=== PATIENT | male | born 1945 | race Caucasian/White ===

== ENCOUNTER 2017-09-16 07:20 | Emergency (ER) | payer MEDICARE, OTHER ==
[~2017-09-16] VITALS: Ht 175.3 cm; Wt 109.0 kg
[~2017-09-16 07:20] MED LIST: ALBUAER3 INH; ENAL10TA PO; FISH1000 PO; GLIP10TA6 PO; GLUCTES12; METF-382 PO; METO25TA3 PO; MULT-6 PO; ONGL5TAB PO; PRAV20TA PO; RANI150T PO; SPIRCAP INH; WARF-21 PO
[2017-09-16 07:22] VITALS: BP 180/80; PULSE 95; RESP 18; TEMP 97.6; O2SAT 95
[2017-09-16 07:28] VITALS: BP 146/82
[2017-09-16] MEDS ORDERED: diphenhydrAMINE HCL 50 MG/ML VIAL IV PUSH ONE (08:15)
[2017-09-16] MEDS ORDERED: SODIUM CHLORIDE 0.9% FLUSH 10 ML FLUSH IVF PRN (08:15)
[2017-09-16] MEDS ORDERED: methylPREDNISolone SOD SUCC 125 MG/2 ML VIAL IV PUSH ONE (08:15)
--- NOTE | 2017-09-16 08:16 | PD ---
HPI Chief Complaint: Skin Problem Time Seen by Provider: 07:42 Travel History International Travel<30 days: No Contact w/Intl Traveler<30days: No Traveled to known affect area: No History of Present Illness HPI 72-year-old male, with history of COPD, diabetes mellitus, PAD, hypertension, presents to the emergency department with complaint of a dry itchy rash all over that has worsened over the past week, but has been there for the past month. Denies fever, vomiting. Reports an increase in shortness of breath over the past 3 weeks. Reports wheezing. Denies chest pain. Reports testicular swelling over the past few days. Reports testicular pain. Denies dysuria. Denies recent surgeries. Has seen his primary care provider and has been put on steroids 2 times for his rash with no relief. He has an appointment with an teacher of the emotionally disturbed tomorrow, but says he cannot take the itching anymore. He has also tried topical hydrocortisone cream. Does not use an inhaler for his COPD, and has not tried any treatments to alleviate symptoms. Shortness of breath is worse with walking. Primary care provider is the [facility]. No known allergies. History of COPD, diabetes mellitus type 2, PAD, hypertension. Takes Coumadin, but does not know why. Says he thinks it is to prevent blood clots, and denies history of blood clots. Has no other medical complaints. No other modifying factors or associated signs and symptoms. PFSH Past Medical History Diminished Hearing: No Past Surgical History Other Surgery: Yes (HERNIA SX, RIGHT EYE GONE) Social History Alcohol Use: No Tobacco Use: No Substance Use: No Allergies-Medications (Allergen,Severity, Reaction): Coded Allergies: doxycycline (Unverified Allergy, Severe, rash, 09/16/17) Rash - pt. dosn't know clindamycin (Unverified Allergy, Intermediate, rash, 09/16/17) Pt. dosn't know Reported Meds & Prescriptions Reported Meds & Active Scripts Active Diphenhydramine (Diphenhydramine HCl) 25 Mg Cap 25 Mg PO Q6H PRN 5 Days Ventolin Hfa 18 GM Inh (Albuterol Sulfate) 90 Mcg/Act Aer 2 Puff INH Q4H PRN Deltasone (Prednisone) 20 Mg Tab 20 Mg PO BID 5 Days Warfarin 7.5 Mg Tab 7.5 Mg PO DAILY Metformin ER (Metformin HCl) 1,000 Mg Michael 1,000 Mg PO BID With evening meal Metoprolol Tartrate 25 Mg Tab 25 Mg PO BID Reported Hydroxyzine HCl 50 Mg Tab 50 Mg PO Q6HR Tradjenta (Linagliptin) 5 Mg Tab 5 Mg PO DAILY Fenofibrate 160 Mg Tab 160 Mg PO DAILY Atorvastatin (Atorvastatin Calcium) 80 Mg Tab 80 Mg PO HS Lantus Inj (Insulin Glargine) 1,000 Unit/10 Ml Vial 20 Units SQ HS Fish Oil ([place]-3 Fatty Acids) 1,000 Mg Cap 1,000 Mg PO BID Onglyza (Saxagliptin) 5 Mg Tab 5 Mg PO DAILY Ranitidine (Ranitidine HCl) 150 Mg Tab 150 Mg PO DAILY PRN Glucocom Test Strips (Blood Glucose Test Strips) 1 Jojo Jojo 1 Box .ROUTE DIRECTED Glipizide 10 Mg Tab 20 Mg PO BIDAC Take 30 minutes before a meal Enalapril (Enalapril Maleate) 10 Mg Tab 10 Mg PO TID Review of Systems Except as stated in HPI: all other systems reviewed are Neg Physical Exam Narrative GENERAL: Well-nourished, well-developed elderly, male patient; afebrile, nontoxic-appearing SKIN: Warm and dry. HEAD: Atraumatic. Normocephalic. EYES: Pupils equal and round. No scleral icterus. No injection or drainage. ENT: Mucosa pink and moist. No erythema or exudates. No uvular edema. No uvular , palatal, or tonsillar deviation. Airway patent. Nares without nasal blood, purulent drainage or septal hematoma. EARS: Bilateral pinnae and external canals appear within normal limits. Bilateral tympanic membranes without erythema, dullness or perforation. NECK: Trachea midline. No lymphadenopathy. CARDIOVASCULAR: Regular rate and rhythm. No murmur appreciated. RESPIRATORY: No accessory muscle use. Lungs with clear throughout to auscultation with decreased lung sounds in bilateral bases. Breath sounds equal bilaterally. Mildly tachypneic with some work of breathing. Audible wheezing noted. GASTROINTESTINAL: Abdomen soft, non-tender, nondistended. Hepatic and splenic margins not palpable. Bowel sounds are active 4 quadrants. MUSCULOSKELETAL: No obvious deformities. No clubbing. No cyanosis. No edema. NEUROLOGICAL: Awake and alert. Oriented 3. No obvious cranial nerve deficits. Motor grossly within normal limits. Normal speech. Moves all extremities. 5/5 strength to all extremities. PSYCHIATRIC: Appropriate mood and affect; insight and judgment normal. Data Data Last Documented VS Vital Signs Date Time Temp Pulse Resp B/P (MAP) Pulse Ox O2 Delivery O2 Flow Rate FiO2 09/16/17 11:30 (113) 09/16/17 08:37 99 Room Air 09/16/17 07:22 97.6 95 18 Orders Orders Electrocardiogram (09/16/17 08:07) Basic Metabolic Panel (Bmp) (09/16/17 08:07) B-Type Natriuretic Peptide (09/16/17 08:07) Ckmb (Isoenzyme) Profile (09/16/17 08:07) Complete Blood Count With Diff (09/16/17 08:07) Magnesium (Mg) (09/16/17 08:07) Prothrombin Time / Inr (Pt) (09/16/17 08:07) Act Partial Throm Time (Ptt) (09/16/17 08:07) Troponin I (09/16/17 08:07) Ecg Monitoring (09/16/17 08:07) Iv Access Insert/Monitor (09/16/17 08:07) Oximetry (09/16/17 08:07) Sodium Chloride 0.9% Flush (Ns Flush) (09/16/17 08:15) Chest, Pa & Lat (09/16/17 08:07) Diphenhydramine Inj (Benadryl Inj) (09/16/17 08:15) Us Testicles W Doppler (09/16/17 ) Methylprednisolone So Succ Inj (Solumedr (09/16/17 08:15) Albuterol-Ipratropium Neb (Duoneb Neb) (09/16/17 09:00) CKMB (09/16/17 08:30) CKMB% (09/16/17 08:30) Ed Discharge Order (09/16/17 11:22) Magnesium Oxide (Mag-Ox) (09/16/17 11:30) Labs Laboratory Tests Test 09/16/17 08:30 White Blood Count 9.4 TH/MM3 Red Blood Count 4.33 MIL/MM3 Hemoglobin 13.6 GM/DL Hematocrit 39.3 % Mean Corpuscular Volume 90.6 FL Mean Corpuscular Hemoglobin 31.3 PG Mean Corpuscular Hemoglobin Concent 34.6 % Red Cell Distribution Width 14.2 % Platelet Count 268 TH/MM3 Mean Platelet Volume 8.2 FL Neutrophils (%) (Auto) 69.4 % Lymphocytes (%) (Auto) 11.3 % Monocytes (%) (Auto) 10.8 % Eosinophils (%) (Auto) 7.5 % Basophils (%) (Auto) 1.0 % Neutrophils # (Auto) 6.5 TH/MM3 Lymphocytes # (Auto) 1.1 TH/MM3 Monocytes # (Auto) 1.0 TH/MM3 Eosinophils # (Auto) 0.7 TH/MM3 Basophils # (Auto) 0.1 TH/MM3 CBC Comment DIFF FINAL Differential Comment Prothrombin Time 13.4 SEC Prothromb Time International Ratio 1.3 RATIO Activated Partial Thromboplast Time 26.4 SEC Blood Urea Nitrogen 13 MG/DL Creatinine 1.03 MG/DL Random Glucose 159 MG/DL Calcium Level 9.0 MG/DL Magnesium Level 1.2 MG/DL Sodium Level 140 MEQ/L Potassium Level 4.6 MEQ/L Chloride Level 103 MEQ/L Carbon Dioxide Level 30.0 MEQ/L Anion Gap 7 MEQ/L Estimat Glomerular Filtration Rate 71 ML/MIN Total Creatine Kinase 104 U/L Creatine Kinase MB 4.0 NG/ML Troponin I LESS THAN 0.02 NG/ML B-Type Natriuretic Peptide 49 PG/ML MDM Medical Decision Making Medical Screen Exam Complete: Yes Emergency Medical Condition: Yes Medical Record Reviewed: Yes Differential Diagnosis COPD exacerbation, nonspecific rash, CHF, Narrative Course This is a 72-year-old male with history of COPD, diabetes mellitus, PAD, hypertension, and on Coumadin. He presents with a generalized, erythematous, itchy rash and increased shortness of breath. He is swollen all over and has multiple areas of excoriation to bilateral arms, buttocks, bilateral lower extremities. Patient has some work of breathing during physical exam and with talking. Lungs are clear with decreased lung sounds in bilateral bases. He is mildly tachypneic. Oxygen saturation is 95% on room air. His testicles are severely swollen and he reports they are painful. He denies chest pain. I talked to Dr. Mccracken, my attending physician, and she agrees with my plan of care. Patient will be moved to a medical bed for further treatment and evaluation. Dr. Mccracken will assume care at this time. See her note for final patient disposition. CBC, CMP, CK-MB, troponin, BNP, coags, chest x-ray, EKG, Solu- Medrol, Benadryl, testicular ultrasound ordered. The patient is refusing an albuterol breathing treatment secondary to it making him cold. Scripts Diphenhydramine (Diphenhydramine) 25 Mg Cap 25 MG PO Q6H Y for ITCHING for 5 Days, #20 CAP 0 Refills Prov: Jennifer Mccracken DO 09/16/17 Albuterol 18 GM Inh (Ventolin Hfa 18 GM Inh) 90 Mcg/Act Aer 2 PUFF INH Q4H Y for SHORTNESS OF BREATH, #1 INHALER 0 Refills Prov: Jennifer Mccracken DO 09/16/17 Prednisone (Deltasone) 20 Mg Tab 20 MG PO BID for 5 Days, #10 TAB 0 Refills Prov: Jennifer Mccracken DO 09/16/17 Beena Norwood Sep 16, 2017 08:16
--- NOTE | 2017-09-16 08:31 | PD ---
Physical Exam Narrative I, Dr. Mccracken, have reviewed the advance practice practitioner's documentation and am in agreement, met with the patient face to face, made the diagnosis, and the medical decision making was done by me. *My assessment and Findings: Anasarca vs. psoriasis vs. eczema vs. COPD exacerbation vs. CHF Pt was [facility] at [facility] and then transfer to medical bed. 72yo M with PMH of COPD, DM, HTN here with multiple complaints. Pt has a diffuse, itchy rash for 1 month and is here for that. Pt is also sob for a while and has wheezing on exam. Initially did not want any nebulizer treatment but after discussing, agreed to it. Pt also have diffuse edema in bilateral legs and scrotum. It was not tender on scrotum exam and feels like fluid. Labs reviewed , no leukocytosis. H/H normal. BNP normal. Troponin negative. Mild hypomagnesemia, replaced. CXR showed no acute disease. US scrotum showed 3 simple cyst right testicle. Mild right hydrocele and minimal left hydrocele. 0.5cm left epididymal head cyst. Both testicles demonstrate intratesticular blood flow. Pt given diphenhydramine for itching. Pt had expiratory wheezing so given methylprednisolone and duonebs. Pt reevaluated after medications and said he feels much better. Pt is no longer sob and no longer itching. O2 sat 99 % on RA. Pt never had any chest pain and denies testicular pain to me. He has a primary care physician and has an appointment with foundry worker apprentice tomorrow. Impression is more psoriasis vs. eczema and pt has no tongue or throat swelling. Will give a few days of prednisone for COPD and rash since it is so diffuse. Will give ventolin. Data Data Last Documented VS Vital Signs Date Time Temp Pulse Resp B/P (MAP) Pulse Ox O2 Delivery O2 Flow Rate FiO2 09/16/17 08:37 (113) 99 Room Air 09/16/17 07:22 97.6 95 18 Orders Orders Electrocardiogram (09/16/17 08:07) Basic Metabolic Panel (Bmp) (09/16/17 08:07) B-Type Natriuretic Peptide (09/16/17 08:07) Ckmb (Isoenzyme) Profile (09/16/17 08:07) Complete Blood Count With Diff (09/16/17 08:07) Magnesium (Mg) (09/16/17 08:07) Prothrombin Time / Inr (Pt) (09/16/17 08:07) Act Partial Throm Time (Ptt) (09/16/17 08:07) Troponin I (09/16/17 08:07) Ecg Monitoring (09/16/17 08:07) Iv Access Insert/Monitor (09/16/17 08:07) Oximetry (09/16/17 08:07) Sodium Chloride 0.9% Flush (Ns Flush) (09/16/17 08:15) Chest, Pa & Lat (09/16/17 08:07) Diphenhydramine Inj (Benadryl Inj) (09/16/17 08:15) Us Testicles W Doppler (09/16/17 ) Methylprednisolone So Succ Inj (Solumedr (09/16/17 08:15) Albuterol-Ipratropium Neb (Duoneb Neb) (09/16/17 09:00) CKMB (09/16/17 08:30) CKMB% (09/16/17 08:30) Ed Discharge Order (09/16/17 11:22) Labs Laboratory Tests Test 09/16/17 08:30 White Blood Count 9.4 TH/MM3 Red Blood Count 4.33 MIL/MM3 Hemoglobin 13.6 GM/DL Hematocrit 39.3 % Mean Corpuscular Volume 90.6 FL Mean Corpuscular Hemoglobin 31.3 PG Mean Corpuscular Hemoglobin Concent 34.6 % Red Cell Distribution Width 14.2 % Platelet Count 268 TH/MM3 Mean Platelet Volume 8.2 FL Neutrophils (%) (Auto) 69.4 % Lymphocytes (%) (Auto) 11.3 % Monocytes (%) (Auto) 10.8 % Eosinophils (%) (Auto) 7.5 % Basophils (%) (Auto) 1.0 % Neutrophils # (Auto) 6.5 TH/MM3 Lymphocytes # (Auto) 1.1 TH/MM3 Monocytes # (Auto) 1.0 TH/MM3 Eosinophils # (Auto) 0.7 TH/MM3 Basophils # (Auto) 0.1 TH/MM3 CBC Comment DIFF FINAL Differential Comment Prothrombin Time 13.4 SEC Prothromb Time International Ratio 1.3 RATIO Activated Partial Thromboplast Time 26.4 SEC Blood Urea Nitrogen 13 MG/DL Creatinine 1.03 MG/DL Random Glucose 159 MG/DL Calcium Level 9.0 MG/DL Magnesium Level 1.2 MG/DL Sodium Level 140 MEQ/L Potassium Level 4.6 MEQ/L Chloride Level 103 MEQ/L Carbon Dioxide Level 30.0 MEQ/L Anion Gap 7 MEQ/L Estimat Glomerular Filtration Rate 71 ML/MIN Total Creatine Kinase 104 U/L Creatine Kinase MB 4.0 NG/ML Troponin I LESS THAN 0.02 NG/ML B-Type Natriuretic Peptide 49 PG/ML [facility] Supervised Visit with SOLOMON: Yes Interpretation(s) EKG: NSR 76bpm. LAD. No ST segment elevation or depression. Diagnosis Primary Impression: Atopic dermatitis Qualified Codes: L20.9 - Atopic dermatitis, unspecified Additional Impression: COPD exacerbation Referrals: Will Bansal MD as needed Scrotal edema Patient Instructions: General Instructions Departure Forms: Tests/Procedures Additional Instruction: Please follow up with your primary care physician, human resources project coordinator as needed, foundry worker apprentice and urologist as needed. Return to the ED if symptoms worsen. Med/Other Pt SpecificInfo: Prescription(s) given Scripts Diphenhydramine (Diphenhydramine) 25 Mg Cap 25 MG PO Q6H Y for ITCHING for 5 Days, #20 CAP 0 Refills Prov: Jennifer Mccracken DO 09/16/17 Albuterol 18 GM Inh (Ventolin Hfa 18 GM Inh) 90 Mcg/Act Aer 2 PUFF INH Q4H Y for SHORTNESS OF BREATH, #1 INHALER 0 Refills Prov: Jennifer Mccracken DO 09/16/17 Prednisone (Deltasone) 20 Mg Tab 20 MG PO BID for 5 Days, #10 TAB 0 Refills Prov: Jennifer Mccracken DO 09/16/17 Disposition: 01 DISCHARGE HOME Condition: Stable Jennifer Mccracken DO Sep 16, 2017 08:31
[2017-09-16 08:37] VITALS: O2SAT 99
--- NOTE | 2017-09-16 08:43 | RADRPT ---
EXAM DATE/TIME: 09/16/2017 08:15 [facility] COMPARISON: No previous studies available for comparison. INDICATIONS : Short of Breath MEDICAL HISTORY : Chronic obstructive pulmonary disease. SURGICAL HISTORY : None. ENCOUNTER: Initial ACUITY: 1 day PAIN SCORE: 0/10 LOCATION: chest FINDINGS: PA and lateral views of the chest demonstrate the lungs to be symmetrically aerated without evidence of mass, infiltrate or effusion. The cardiomediastinal contours are unremarkable. Spurs are seen in the thoracic spine. There appears to be aortic stent graft in the abdominal aorta. CONCLUSION: No acute disease. Tod Noel MD on September 16, 2017 at 8:41 Board Certified Radiologist. This report was verified electronically.
[2017-09-16 08:48] LABS: WHITE BLOOD COUNT 9.4 TH/MM3 (4.0-11.0)
[2017-09-16 08:49] LABS: AUTOMATED NEUTROPHIL # 6.5 TH/MM3 (1.8-7.7); BASOPHIL # 0.1 TH/MM3 (0-0.2); EOSINOPHIL # 0.7 TH/MM3 (0-0.4); EOSINOPHIL % 7.5 % (0.0-4.0); HEMATOCRIT 39.3 % (39.0-51.0); HEMOGLOBIN 13.6 GM/DL (13.0-17.0); LYMPH % 11.3 % (9.0-44.0); LYMPHOCYTE # 1.1 TH/MM3 (1.0-4.8); MEAN CELL VOLUME 90.6 FL (80.0-100.0); MEAN CORPUSCULAR HEMOGLOBIN 31.3 PG (27.0-34.0); MEAN CORPUSCULAR HGB CONC 34.6 % (32.0-36.0); MEAN PLATELET VOLUME 8.2 FL (7.0-11.0); MONO % 10.8 % (0.0-8.0); NEUT % 69.4 % (16.0-70.0); PLATELET COUNT 268 TH/MM3 (150-450); RED BLOOD COUNT 4.33 MIL/MM3 (4.50-5.90); RED CELL DISTRIBUTION WIDTH 14.2 % (11.6-17.2)
[2017-09-16 09:07] LABS: INTERNATIONAL NORMALIZED RATIO 1.3 RATIO; PROTHROMBIN TIME - PATIENT 13.4 SEC (9.8-11.6)
[2017-09-16 09:21] LABS: BLOOD UREA NITROGEN 13 MG/DL (7-18); CHLORIDE 103 MEQ/L (98-107); CREATININE 1.03 MG/DL (0.60-1.30); GLOMERULAR FILTRATION RATE 71 ML/MIN (>89); GLUCOSE,RANDOM 159 MG/DL (74-106); MAGNESIUM 1.2 MG/DL (1.5-2.5); SODIUM (NA) 140 MEQ/L (136-145)
[2017-09-16 09:25] LABS: TROPONIN I LESS THAN 0.02 NG/ML (0.02-0.05)
[2017-09-16] MEDS: RESP: ALBUTEROL 2.5 MG/IPRATROPIUM 0.5 MG NEB (SCH) INH (09:34)
--- NOTE | 2017-09-16 10:04 | RADRPT ---
EXAM DATE/TIME: 09/16/2017 08:33 [facility] COMPARISON: No previous studies available for comparison. INDICATIONS : Scrotal pain. MEDICAL HISTORY : Scrotal pain. SURGICAL HISTORY : Hernia repair. Right eye removal. ENCOUNTER: Initial ACUITY: 1 week PAIN SCORE: 0/10 LOCATION: Bilateral scrotum. MEASUREMENTS: RIGHT TESTICLE: 4.1 x 2.6 x 2.9cm LEFT TESTICLE: 3.8 x 2.3 x 2.1cm FINDINGS: RIGHT TESTICLE: Homogeneous echotexture the right testicle. There are 3 simple cysts seen at the periphery of the lef t testicle measuring 0.9 cm, 1.3 cm, and 1.0 cm in diameter. Blood flow is symmetric and within norm al limits. There is a mild hydrocele. No varicocele is seen. Epididymis appears somewhat prominent but no mass is seen. LEFT TESTICLE: Homogeneous echotexture without intra or extratesticular mass. Blood flow is symmetric and within no rmal limits. No significant varicocele is seen. There is a 0.5 cm cyst of the left epididymis. Ther e is a minimal hydrocele. SCROTUM: The scrotum appears diffusely thickened and edematous. CONCLUSION: 1. 3 simple cyst seen in the right testicle. These have a benign appearance. 2. Thickening and edema seen throughout the scrotum. 3. Mild right hydrocele and minimal left hydrocele. 4. 0.5 cm left epididymal head cyst. 5. Both testicles demonstrate intratesticular blood flow. Tod Noel MD on September 16, 2017 at 9:58 Board Certified Radiologist. This report was verified electronically.
[2017-09-16] MEDS ORDERED: LANTUS2P SQ (10:20)
[2017-09-16] MEDS ORDERED: HYDR50TA94 PO (10:23)
[2017-09-16] MEDS ORDERED: TRAD5TAB PO (10:23)
[2017-09-16] MEDS ORDERED: ATOR80TA45 PO (10:23)
[2017-09-16] MEDS ORDERED: FENO160T PO (10:23)
[2017-09-16] MEDS ORDERED: PRED-503 PO (11:22)
[2017-09-16] MEDS ORDERED: DIPH25CA PO (11:22)
[2017-09-16] MEDS ORDERED: VENTAER INH (11:22)
--- NOTE | 2017-09-16 11:27 | EKG ---
Date Performed: 09/16/2017 Time Performed: 09:38:06 PTAGE: 72 years EKG: Sinus rhythm INCOMPLETE RIGHT BUNDLE BRANCH BLOCK LEFT ANTERIOR FASCICULAR BLOCK ABNORMAL ECG PREVIOUS TRACING : 03/05/2000 23.44 No significant change from previous tracing noted. DOCTOR: Catarino Zayas Interpretating Date/Time 09/16/2017 11:26:15
[2017-09-16] MEDS ORDERED: MAGNESIUM OXIDE 400 MG TAB PO ONE (11:30)
== END 2017-09-16 11:37 | disposition home or self-care (01) ==
LOC: NEPE 07:20
DX: L20.9 Atopic dermatitis, unspecified (principal); J44.1 Chronic obstructive pulmonary disease with (acute) exacerbation; N50.89 Other specified disorders of the male genital organs; R94.31 Abnormal electrocardiogram [ECG] [EKG]; R06.02 Shortness of breath; E11.9 Type 2 diabetes mellitus without complications; I10 Essential (primary) hypertension; I73.9 Peripheral vascular disease, unspecified
CPT/HCPCS: 71046; 76870; 80048; 82550; 82552; 83735; 83880; 84484; 85025; 85610; 85730; 93005; 93975; 94640; 94664; 96374; 96375; 99285; J1200; J2930